=== PATIENT | female | born 1950 | race Caucasian/White ===

== ENCOUNTER 2017-02-02 07:49 | Inpatient (IN) | payer MEDICARE, MEDICAID ==
[~2017-02-02] VITALS: Ht 152.4 cm; Wt 68.8 kg
[2017-02-02 07:56] VITALS: Ht 152.4 cm; Wt 68.8 kg
[2017-02-02] MEDS ORDERED: ONDANSETRON 4 MG INJ IV STA (08:12)
[2017-02-02 08:34] LABS: ADD SCAN DIFF NO
[2017-02-02 09:03] LABS: ALBUMIN 5.1 g/dl (3.3-4.9); ALBUMIN/GLOBULIN RATIO 1.06; BILIRUBIN,INDIRECT 0.7 mg/dl (0-1.1); BILIRUBIN,TOTAL 0.7 mg/dl (0.2-1.3); CALCIUM 9.4 mg/dl (8.4-10.2); CREATININE 4.05 mg/dl (0.44-1.00); TOTAL PROTEIN 9.9 g/dl (6.1-8.1)
[2017-02-02 09:06] LABS: BASOPHILS % 0.2 % (0.0-2.0); EOSINOPHILS # 0.1 10^3/ul (0.0-0.5); EOSINOPHILS % 1.4 % (0.0-7.0); HEMATOCRIT 38.2 % (37.0-47.0); HEMOGLOBIN 13.1 g/dl (12.0-16.0); LYMPHOCYTES # 1.5 10^3/ul (0.8-2.9); MEAN CORPUSCULAR HEMOGLOBIN 35.2 pg (29.0-33.0); MEAN CORPUSCULAR HGB CONC 34.3 g/dl (32.0-37.0); MEAN CORPUSCULAR VOLUME 102.7 fl (82.0-101.0); MEAN PLATELET VOLUME 10.2 fl (7.4-10.4); MONOCYTE # 0.4 10^3/ul (0.3-0.9); MONOCYTES % 4.5 % (0.0-11.0); NEUTROPHIL # 7.1 10^3/ul (1.6-7.5); NEUTROPHILS % 77.4 % (39.0-77.0); PLATELET COUNT 124 10^3/UL (140-415); RED BLOOD COUNT 3.72 10^6/ul (4.20-5.40); RED CELL DISTRIBUTION WIDTH 13.5 % (11.5-14.5); WHITE BLOOD COUNT 9.2 10^3/ul (4.8-10.8)
--- NOTE | 2017-02-02 09:12 | RADRPT ---
PROCEDURE: CT Abdomen and Pelvis without contrast. CLINICAL INDICATION: Abdominal pain TECHNIQUE: CT of the abdomen and pelvis was performed on a multi-detector scanner without IV contr ast. Coronal and sagittal images were reformatted from the axial data set. One or more of the foll owing dose reduction techniques were used: automated exposure control, adjustment of the mA and/or kV according to patient size, use of iterative reconstruction technique. CTDI = 20.09 mGy. DLP = 10 69.71 mGy-cm. COMPARISON: None. FINDINGS: CT abdomen: The lung bases are clear. The heart size is normal, without pericardial effusion. Coronary arteria l calcifications are noted. Gallbladder is surgically absent. Liver, biliary tree, pancreas, splee n and adrenal glands are unremarkable. There is mild bilateral chronic renal atrophy. No urolithia sis or obstructive uropathy is identified. The stomach is grossly unremarkable. The aorta is of normal caliber. Aortic vascular calcifications are present. There is no retroperit matias lymphadenopathy. The mima hepatis region is clear. CT pelvis: No bowel obstruction, free intraperitoneal air or abscess is identified. Mild retained fecal materi al may indicate constipation. There is no diverticulosis, diverticulitis, colitis or appendicitis. Urinary bladder, uterus and adnexa are grossly unremarkable. No pelvic mass, free fluid or lymphad enopathy is identified. The surrounding osseous structures are remarkable for degenerative spondylosis of the spine. No ost eolytic or osteoblastic lesion is detected. IMPRESSION: 1. Coronary arterial and aortoiliac atherosclerotic calcifications are present. 2. Gallbladder is surgically absent. 3. There is mild chronic bilateral renal atrophy. No urolithiasis or obstructive uropathy is seen. 4. Mild retained fecal material may indicate constipation. 5. No bowel obstruction, mass, lymphadenopathy, or focal acute inflammatory process is identified. RPTAT: EE .Lonny Horne MD, Date Time Electronically viewed and signed by .Lonny Horne MD, on 02/02/2017 09:11 .R/
[2017-02-02 09:14] LABS: TROPONIN-I 0.02 ng/ml (0.00-0.12)
[2017-02-02 09:18] LABS: INR 1.03; PROTIME 13.5 Sec (12.2-14.2); PT RATIO 1.1
--- NOTE | 2017-02-02 10:44 | RADRPT ---
PROCEDURE: XR Chest. CLINICAL INDICATION: Possible sepsis TECHNIQUE: Single AP view of the chest were obtained COMPARISON: None FINDINGS: The heart is prominently enlarged. Surgical changes of sternotomy are seen with surgical clips in t he left neck as well. The pulmonary vasculature are unremarkable. The aorta demonstrates atheroscle rotic calcifications. There is no lung consolidation, pleural effusion or pneumothorax. Degenerati ve changes are seen within the thoracic spine. There is no acute osseous abnormality. IMPRESSION: Cardiomegaly and surgical changes of the sternum are present with otherwise no acute pulmonary proce ss. RPTAT: AA .Rocky Chambers MD, Date Time Electronically viewed and signed by .Rocky Chambers MD, on 02/02/2017 10:43 .J/
[2017-02-02] MEDS ORDERED: SODIUM CHLORIDE 0.9% 1L BAG IV* STA (11:09)
[2017-02-02] MEDS ORDERED: ACETAMINOPHEN 500 MG TAB PO STA (12:16)
[2017-02-02] MEDS ORDERED: ONDANSETRON 4 MG INJ IV PRN (14:30)
[2017-02-02] MEDS ORDERED: ACETAMINOPHEN 325 MG TAB PO PRN (14:30)
--- NOTE | 2017-02-02 14:51 | RADRPT ---
PROCEDURE: CT brain without contrast CLINICAL INDICATION: Altered level of consciousness TECHNIQUE: CT of the brain without contrast performed on a multidetector CT scanner, with multiplan ar reformats. One or more of the following dose reduction techniques were used: Automated exposure control, adjustment in mA and / or kV according to patient size, use of iterative reconstructive toma hnique. CTDIvol = 42 mGy; DLP = 720 mGy-cm. COMPARISON: None available FINDINGS: No acute intracranial hemorrhage is identified. No extra-axial fluid collection is seen. There is no mass effect. No midline shift is identified. The ventricles and sulci are mildly enlarged compatible with volume loss. There is a small chronic infarct in the right cerebellar hemisphere. There is a subtle tiny chronic cortical infarct in the left parietal lobe with adjacent gliosis. There are additional mild areas o f hypodensity in the periventricular - deep white matter which are nonspecific but suggestive of chr onic small vessel ischemic changes. Tenorio-white differentiation is otherwise preserved. Noted are p unctate calcifications in the left dentate nucleus. Atherosclerotic calcifications of the proximal intracranial arteries are noted. Osseous structures are unremarkable. Mastoid air cells and imaged paranasal sinuses grossly clear. IMPRESSION: 1. No evidence of acute intracranial pathology. 2. 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 3. Mild volume loss, with mild chronic small vessel ischemic changes. RPTAT: HH .Parviz Gill MD, MD Date Time Electronically viewed and signed by .Parviz Gill MD, MD on 02/02/2017 14:50 .O/
[2017-02-02 15:05] VITALS: TEMP 99.1
--- NOTE | 2017-02-02 15:27 | ERA ---
ER Documentation Chief Complaint Date/Time DATE: 02/02/17 TIME: 15:16 Chief Complaint vomitting after dialysis HPI 66-year-old female presenting with vomiting that started after dialysis today. Patient has a history of hypertension, CAD, ESRD on hemodialysis w/ anuria. She denies any associated chest pain, shortness of breath, vision disturbance, abdominal pain, neck pain, neck stiffness, headache, photophobia, constipation or diarrhea. She denies any sick contacts. Vomit is nonbloody and nonbilious. ROS All systems reviewed and are negative except as per history of present illness. Medications Home Meds Unable to Obtain Active Prescriptions or Reported Meds Allergies Allergies: Coded Allergies: No Known Allergy (Unverified , 02/02/17) PMhx/Soc History of Surgery: Yes (Cardiac surgery, cholecystectomy) Hx Cardiac Disorders: Yes (chf) Hx Miscellaneous Medical Probl: Yes (ESRD on hemodialysis) Hx Alcohol Use: No Hx Substance Use: No Hx Tobacco Use: No Smoking Status: Never smoker FmHx Family History: No coronary disease Physical Exam Vitals Vital Signs Date Time Temp Pulse Resp B/P Pulse Ox O2 Delivery O2 Flow Rate FiO2 02/02/17 15:05 99.1 75 20 125/73 95 Room Air 02/02/17 13:21 99.1 78 20 122/61 94 Room Air 02/02/17 11:20 100.3 93 20 135/59 97 Room Air 02/02/17 11:14 91 20 120/57 99 Room Air 02/02/17 08:05 Nasal Cannula 2 02/02/17 07:56 100.5 94 18 142/61 99 Physical Exam Const: [] Head: Atraumatic Eyes: Normal Conjunctiva ENT: Normal External Ears, Nose and Mouth. Neck: Full range of motion..~ No meningismus. Resp: Clear to auscultation bilaterally Cardio: Regular rate and rhythm, no murmurs Abd: Soft, non tender, non distended. Normal bowel sounds Skin: No petechiae or rashes Back: No midline or flank tenderness Ext: No cyanosis, or edema Neur: Awake and alert Psych: Normal Mood and Affect Result Diagram: 02/02/17 0810 02/02/17 0810 Results 24 hrs Laboratory Tests Test 02/02/17 08:10 02/02/17 11:44 White Blood Count 9.210^3/ul Red Blood Count 3.7210^6/ul Hemoglobin 13.1g/dl Hematocrit 38.2% Mean Corpuscular Volume 102.7fl Mean Corpuscular Hemoglobin 35.2pg Mean Corpuscular Hemoglobin Concent 34.3g/dl Red Cell Distribution Width 13.5% Platelet Count 37151^3/UL Mean Platelet Volume 10.2fl Neutrophils % 77.4% Lymphocytes % 16.0% Monocytes % 4.5% Eosinophils % 1.4% Basophils % 0.2% Nucleated Red Blood Cells % 0.0/100WBC Neutrophils # 7.110^3/ul Lymphocytes # 1.510^3/ul Monocytes # 0.410^3/ul Eosinophils # 0.110^3/ul Basophils # 0.010^3/ul Nucleated Red Blood Cells # 0.010^3/ul Prothrombin Time 13.5Sec Prothrombin Time Ratio 1.1 INR International Normalized Ratio 1.03 Activated Partial Thromboplast Time 30.0Sec Sodium Level 138mmol/L Potassium Level 4.0mmol/L Chloride Level 92mmol/L Carbon Dioxide Level 33mmol/L Anion Gap 17 Blood Urea Nitrogen 26mg/dl Creatinine 4.05mg/dl Glucose Level 80mg/dl Lactic Acid Level 2.1mmol/L 1.4mmol/L Calcium Level 9.4mg/dl Total Bilirubin 0.7mg/dl Direct Bilirubin 0.00mg/dl Indirect Bilirubin 0.7mg/dl Aspartate Amino Transf (AST/SGOT) 35IU/L Alanine Aminotransferase (ALT/SGPT) 28IU/L Alkaline Phosphatase 304IU/L Troponin I 0.020ng/ml Total Protein 9.9g/dl Albumin 5.1g/dl Globulin 4.80g/dl Albumin/Globulin Ratio 1.06 Current Medications Medications (Trade) Dose Ordered Sig/Vanesa Route PRN Reason Start Time Stop Time Status Last Admin Dose Admin Ondansetron HCl (Zofran Inj) 4 mg ONCE STAT IV 02/02/17 08:12 02/02/17 08:13 DC 02/02/17 08:25 Sodium Chloride (NS) 2,060 ml BOLUS OVER 2 HOURS STAT IV* 02/02/17 11:09 02/02/17 11:10 DC 02/02/17 11:29 Acetaminophen (Tylenol Tab) 1,000 mg ONCE STAT PO 02/02/17 12:16 02/02/17 12:17 DC 02/02/17 12:41 Ondansetron HCl (Zofran Inj) 4 mg BRIDGE ORDER PRN IV NAUSEA AND/OR VOMITING 02/02/17 14:30 02/03/17 14:29 Acetaminophen (Tylenol Tab) 650 mg ER BRIDGE PRN PO MILD PAIN/FEVER 02/02/17 14:30 02/03/17 14:29 Procedures/MDM EKG: Rate/Rhythm: Sinus tachycardia at 102 bpm QRS, ST, T-waves: Inferior lateral T-wave inversions, nonspecific Impression: No evidence of ischemia or arrhythmia Labs: CBC shows no leukocytosis, mild thrombocytopenia BMP shows evidence of chronic renal failure Troponin within normal limits Lactate elevated at 2.1 Repeat lactate 1.4 after IV fluids Imaging: Chest x-ray shows no acute abnormalities CT head shows no acute abnormalities MDM Patient is presenting with vomiting that started after dialysis. Her vitals were notable for mild tachycardia and low-grade fever. CT abdomen and pelvis was done to evaluate for an acute surgical abdomen, however this was normal. There is no evidence of pneumonia. I have a low suspicion for meningitis or encephalitis. Patient was treated with Zofran for her nausea and vomiting with some improvement. After some time in the ED, she started complaining of a gradual onset headache, [address] head was done to rule out intracranial hemorrhage secondary to retching and vomiting. This was negative. IV fluids were given with improvement of the lactate. Although patient has slightly improved, she does not feel comfortable going home at this time given her generalized weakness. She was able to tolerate fluids by mouth in the ED. the source of her infection is unknown but I suspect it is likely viral. However given the patient is a dialysis patient, she is at increased risk for bacteremia. Cefepime IV was ordered for broad-spectrum coverage until her source is discovered. Blood cultures are pending. Her symptoms have not stabilized and the patient is at risk of rapid decompensation given her risk factors and her age. The patient will be admitted for careful hydration, antibiotic therapy, and infectious source control. 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 30 ml/kg NS bolus Completed Initial Lactate: 2.1 Repeat Lactate 1.4 Critical Care: Time: 35 minutes Treatments/Evaluations: Emergent fluid management, while maintaining close respiratory support. Immediate broad spectrum antibiotic therapy. Simultaneous assessment for possible sources in order to direct therapy. Consideration for invasive and chemical support to prevent respiratory or cardiac collapse. Septic Shock Assessment (1 hour post 30 ml/kg fluid bolus): Hypotension (SBP < 90 or 40 mmHg drop, MAP < 65): No Lactic acid > 4.0 No Accepting Care Team: Current data and ongoing care discussed. Time: Time of admission Primary Provider: Prabhjot Consulting: none Outstanding Data: Cultures Departure Diagnosis: Primary Impression: Nausea and vomiting Qualified Code: R11.2 - Non-intractable vomiting with nausea, unspecified vomiting type Additional Impressions: Fever Qualified Code: R50.9 - Fever, unspecified fever cause End stage renal disease Sepsis Qualified Code: A41.9 - Sepsis, due to unspecified organism Condition: Fair Patient Instructions: Nausea and Vomiting-Adult EKJAYNA LUGO MD Feb 02, 2017 15:26
[2017-02-02] MEDS ORDERED: CEFEPIME 1GM/50 ML (PMX) 50 ML IVPB ONE (15:30)
[2017-02-02 16:14] VITALS: BP 119/56; PULSE 79; RESP 18
[2017-02-02] MEDS ORDERED: POLYETHYLENE GLYCOL 17 GM PACKET PO SCH (19:00)
[2017-02-02 19:09] LABS: ADD SCAN DIFF NO; BASOPHIL # 0.1 10^3/ul (0.0-0.1); BASOPHILS % 0.4 % (0.0-2.0); EOSINOPHILS % 0.3 % (0.0-7.0); HEMATOCRIT 34.7 % (37.0-47.0); HEMOGLOBIN 11.6 g/dl (12.0-16.0); LYMPHOCYTES # 1.3 10^3/ul (0.8-2.9); LYMPHOCYTES % 9.6 % (15.0-51.0); MEAN CORPUSCULAR HGB CONC 33.4 g/dl (32.0-37.0); MEAN CORPUSCULAR VOLUME 104.8 fl (82.0-101.0); MONOCYTE # 0.7 10^3/ul (0.3-0.9); NEUTROPHIL # 10.9 10^3/ul (1.6-7.5); NEUTROPHILS % 83.8 % (39.0-77.0); PLATELET COUNT 123 10^3/UL (140-415); RED BLOOD COUNT 3.31 10^6/ul (4.20-5.40); RED CELL DISTRIBUTION WIDTH 13.8 % (11.5-14.5)
[2017-02-02 19:28] LABS: CALCIUM 8.6 mg/dl (8.4-10.2); CREATININE 5.22 mg/dl (0.44-1.00); MAGNESIUM 2.1 mg/dl (1.7-2.5); PHOSPHORUS 3.7 mg/dl (2.5-4.9); POTASSIUM 5.4 mmol/L (3.5-5.1)
[2017-02-02 19:58] LABS: THYROID STIMULATING HORMONE 1.81 MIU/L (0.465-4.680)
[2017-02-02 20:00] VITALS: BP 137/61; RESP 20
[2017-02-02] MEDS ORDERED: HEPARIN 5,000 UNIT/0.5 ML VIAL ONE (20:06)
[2017-02-02] MEDS ORDERED: METOPROLOL 50 MG TAB ONE (20:07)
--- NOTE | 2017-02-02 20:42 | HP ---
Date/Time of Note Date/Time of Note DATE: 02/02/17 TIME: 16:11 Assessment/Plan VTE Prophylaxis VTE Prophylaxis Intervention: SCD's Assessment/Plan Assessment/Plan 66 yo F with ESRD on HD, HTN, HL, hypothyroid presents with several hours of vomiting and lightheadedness following dialysis. Given slightly elevated body temperature, concern for infectious process especially given acuity of onset. Pt does not meet SIRS criteria based on presentation vitals and labs. Certainly occult bacteremia must be considered in patient with frequent access of her vascular system -blood cultures drawn by ER -sp abx x 1. given clinical stability, defer additional abx pending further culture data -supportive care #ESRD renal cs for HD needs cont home phos mediators #HTN: cont home BP meds #HL: cont statin #PVD: cont home asa #hypothyroid: synthroid renal diet SQH/SCDs anticipate discharge in 1-2 days pending test results HPI/ROS Admit Date/Time Admit Date/Time Feb 02, 2017 at 14:22 Hx of Present Illness 66 yo F with pmhx ESRD on HD, HTN, HL, hypothyroid presents with several hours of nausea and lightheadedness. Pt was in her usual state of health until her dialysis session today. During the session towards the end pt began to feel unwell-->nauseated, diaphoretic. She vomited several times and was brought to the hospital for furher management. Pt denies any chest pain or SOB. No coughing. Pt's home meds list as per [facility] asa 81 benazepril 20 BID clonidine 0.3 q HS docusate 100 BID levothyroxine 0.25 mg daily metoprolol 50 BID nifedipine XL 60 daily phoslo 667mg==> 3 tabs TID AC renagel 2 tab TID AC simvastain 20 daily ROS 10p ROS neg except as per HPI PMH/Family/Social Past Medical History as per HPI Soc Hx: lives in the community Social History Smoking Status: Never smoker Exam/Review of Systems Vital Signs Vitals Vital Signs Date Time Temp Pulse Resp B/P Pulse Ox O2 Delivery O2 Flow Rate FiO2 02/02/17 15:05 99.1 75 20 125/73 95 Room Air 02/02/17 08:05 2 Exam Exam nad, laying in bed, feels diffusely warm to touch MMM EOMI +palpable thrill over HD access point in LUE, no drainage or ttp rrr lungs clear abd soft no le edema, multiple surgically absent toes responds to questions appropriately in Pashto Labs Result Diagram: 02/02/17 0810 02/02/17 0810 Medications Medications Current Medications Cefepime HCl (Maxipime 1gm/50 ml (Pmx)) 50 ml @ 100 mls/hr ONCE ONCE IVPB ; Start 02/02/17 at 15:30; Stop 02/02/17 at 15:59 Procedures Procedures labs reviewed. WBCs nl, lactic acid minimally elevated to 2.0 on arrival. EKG and CXR results noted PRISCILLA DENTON MD Feb 02, 2017 16:13
[2017-02-02] MEDS ORDERED: METOPROLOL 50 MG TAB PO SCH (21:00)
[2017-02-02] MEDS: ATORVASTATIN 10 MG TAB PO SCH (21:00)
[2017-02-02] MEDS ORDERED: HEPARIN 5,000 UNIT/0.5 ML VIAL SC SCH (22:00)
[2017-02-03] MEDS ORDERED: ACETAMINOPHEN 325 MG TAB PO PRN ×2 (05:30→21:00)
[2017-02-03] MEDS: LEVOTHYROXINE 25 MCG TAB PO SCH (05:34)
[2017-02-03] MEDS: HEPARIN 5,000 UNIT/0.5 ML VIAL SC SCH ×3 (05:36→20:54)
[2017-02-03 05:42] LABS: ADD SCAN DIFF NO
[2017-02-03 05:55] LABS: BASOPHILS % 0.4 % (0.0-2.0); EOSINOPHILS # 0.1 10^3/ul (0.0-0.5); EOSINOPHILS % 1.2 % (0.0-7.0); HEMATOCRIT 34.2 % (37.0-47.0); HEMOGLOBIN 11.6 g/dl (12.0-16.0); LYMPHOCYTES # 1.8 10^3/ul (0.8-2.9); MEAN CORPUSCULAR HEMOGLOBIN 35.6 pg (29.0-33.0); MEAN CORPUSCULAR HGB CONC 33.9 g/dl (32.0-37.0); MEAN CORPUSCULAR VOLUME 104.9 fl (82.0-101.0); MEAN PLATELET VOLUME 10.2 fl (7.4-10.4); MONOCYTE # 0.6 10^3/ul (0.3-0.9); MONOCYTES % 5.5 % (0.0-11.0); NEUTROPHIL # 7.9 10^3/ul (1.6-7.5); NEUTROPHILS % 75.4 % (39.0-77.0); PLATELET COUNT 117 10^3/UL (140-415); RED BLOOD COUNT 3.26 10^6/ul (4.20-5.40); RED CELL DISTRIBUTION WIDTH 13.7 % (11.5-14.5); WHITE BLOOD COUNT 10.4 10^3/ul (4.8-10.8)
[2017-02-03 06:24] LABS: CALCIUM 8.5 mg/dl (8.4-10.2); CREATININE 6.43 mg/dl (0.44-1.00); POTASSIUM 4.8 mmol/L (3.5-5.1)
[2017-02-03] MEDS: CALCIUM ACETATE 667 MG CAP PO SCH ×3 (06:39→17:23)
[2017-02-03] MEDS: SEVELAMER 400 MG TAB PO SCH ×3 (06:39→17:23)
[2017-02-03 08:04] VITALS: BP 155/70; RESP 20
[2017-02-03] MEDS: BENAZEPRIL 20 MG TAB PO SCH (08:38)
[2017-02-03] MEDS: ASPIRIN 81 MG TAB PO SCH (08:38)
[2017-02-03] MEDS: METOPROLOL 50 MG TAB PO SCH ×2 (08:39→20:52)
[2017-02-03] MEDS: NIFEdipine (XL) 60 MG TAB PO SCH (08:39)
[2017-02-03] MEDS ORDERED: ASPIRIN 81 MG TAB PO SCH (09:00)
[2017-02-03] MEDS ORDERED: BENAZEPRIL 20 MG TAB PO SCH (09:00)
[2017-02-03] MEDS ORDERED: POLYETHYLENE GLYCOL 17 GM PACKET PO SCH (09:00)
[2017-02-03] MEDS ORDERED: BISACODYL (EC) 5 MG TAB PO PRN (13:30)
[2017-02-03] MEDS ORDERED: BISACODYL 10 MG SUPP PR ONE (13:30)
--- NOTE | 2017-02-03 14:51 | PN ---
Date/Time of Note Date/Time of Note DATE: 02/03/17 TIME: 14:51 Assessment/Plan VTE Prophylaxis VTE Prophylaxis Intervention: SCD's Lines/Catheters IV [facility] Saline Lock Urinary Cath still in place: No Assessment/Plan Assessment/Plan 66 yo F with ESRD on HD, HTN, HL, hypothyroid presents with several hours of vomiting and lightheadedness following dialysis. Given slightly elevated body temperature, concern for infectious process especially given acuity of onset. -blood cultures drawn by ER, ngtd -sp abx x 1. given clinical stability, defer additional abx pending further culture data #ESRD renal cs for HD needs-->Dr Villegas cont home phos mediators #HTN: cont home BP meds #HL: cont statin #PVD: cont home asa #hypothyroid: synthroid renal diet SQH/SCDs home once afebrile x 24 hours. will stop all apap containing products to mask occult fever Subjective 24 Hr Interval Summary Free Text/Dictation Pt feels totally back to baseline. Temperate still a little elevated overnight Exam/Review of Systems Vital Signs Vitals Vital Signs Date Time Temp Pulse Resp B/P Pulse Ox O2 Delivery O2 Flow Rate FiO2 02/03/17 08:04 99.0 77 20 155/70 98 02/02/17 16:14 Room Air 02/02/17 08:05 2 Intake and Output 02/02/17 02/02/17 02/03/17 15:00 23:00 07:00 Intake Total 120 ml Balance 120 ml Exam nad, pleasant no mrg lungs clear abd soft, ntnd no rashes WBCs improved Blood cultures ngtd Results Result Diagram: 02/03/17 0430 02/03/17 0430 Results 24 hrs Laboratory Tests Test 02/02/17 18:50 02/03/17 04:30 White Blood Count 13.0 #H 10.4 Red Blood Count 3.31 L 3.26 L Hemoglobin 11.6 L 11.6 L Hematocrit 34.7 L 34.2 L Mean Corpuscular Volume 104.8 H 104.9 H Mean Corpuscular Hemoglobin 35.0 H 35.6 H Mean Corpuscular Hemoglobin Concent 33.4 33.9 Red Cell Distribution Width 13.8 13.7 Platelet Count 123 L 117 L Mean Platelet Volume 10.0 10.2 Neutrophils % 83.8 H 75.4 Lymphocytes % 9.6 L 17.0 Monocytes % 5.0 5.5 Eosinophils % 0.3 1.2 Basophils % 0.4 0.4 Nucleated Red Blood Cells % 0.0 0.0 Neutrophils # 10.9 H 7.9 H Lymphocytes # 1.3 1.8 Monocytes # 0.7 0.6 Eosinophils # 0.0 0.1 Basophils # 0.1 0.0 Nucleated Red Blood Cells # 0.0 0.0 Sodium Level 139 135 Potassium Level 5.4 H 4.8 Chloride Level 94 L 92 L Carbon Dioxide Level 31 30 Anion Gap 19 H 18 H Blood Urea Nitrogen 35 H 45 H Creatinine 5.22 H 6.43 H Glucose Level 181 # 79 # Hemoglobin A1c 6.2 H Calcium Level 8.6 8.5 Phosphorus Level 3.7 Magnesium Level 2.1 Thyroid Stimulating Hormone (TSH) 1.810 Medications Medications Current Medications Nifedipine (Procardia Xl) 60 mg DAILY PO Last administered on 02/03/17 08:39; Admin Dose 60 MG; Start 02/03/17 at 09:00 Atorvastatin Calcium (Lipitor) 10 mg DAILY@21 PO Last administered on 21:00; Admin Dose 10 MG; Start 02/02/17 at 21:00 Ondansetron HCl (Zofran Tab) 4 mg Q6H PRN PO NAUSEA AND/OR VOMITING; Start at 19:00 Levothyroxine Sodium (Synthroid) 25 mcg DAILY@06 PO Last administered on 05:34; Admin Dose 25 MCG; Start 02/03/17 at 06:00 Acetaminophen (Tylenol Tab) 650 mg Q6H PRN PO PAIN AND OR ELEVATED TEMP Last administered on 02/03/17 05:34; Admin Dose 650 MG; Start 02/03/17 at 05:30 Heparin Sodium (Porcine) (Heparin (5000 Units/0.5 ml)) 5,000 unit Q8 SC Last administered on 02/03/17 14:42; Admin Dose 5,000 UNIT; Start 02/03/17 at 06:00 Aspirin (Aspirin) 81 mg DAILY PO Last administered on 02/03/17 08:38; Admin Dose 81 MG; Start 02/03/17 at 09:00 Benazepril HCl (Lotensin) 20 mg DAILY PO Last administered on 02/03/17 08:38; Admin Dose 20 MG; Start 02/03/17 at 09:00 Metoprolol Tartrate (Lopressor) 50 mg BID PO Last administered on 02/03/17 08: 39; Admin Dose 50 MG; Start 02/03/17 at 09:00 Bisacodyl (Dulcolax) 10 mg DAILY PRN PO CONSTIPATION; Start 02/03/17 at 13:30 PRISCILLA DENTON MD Feb 03, 2017 14:51
[2017-02-03 20:33] VITALS: BP 142/64; RESP 18
[2017-02-03] MEDS: ATORVASTATIN 10 MG TAB PO SCH (20:51)
[2017-02-03] MEDS ORDERED: ATORVASTATIN 10 MG TAB PO SCH (21:00)
[2017-02-04] MEDS ORDERED: hydrALAzine 20 MG INJ IV ONE (04:30)
[2017-02-04] MEDS: LEVOTHYROXINE 25 MCG TAB PO SCH (05:47)
[2017-02-04] MEDS: HEPARIN 5,000 UNIT/0.5 ML VIAL SC SCH ×3 (05:49→22:17)
[2017-02-04 05:50] LABS: ADD SCAN DIFF NO
[2017-02-04] MEDS: SEVELAMER 400 MG TAB PO SCH ×2 (06:19→17:39)
[2017-02-04] MEDS: ONDANSETRON 4 MG TAB PO PRN ×2 (06:19→22:49)
[2017-02-04 06:20] LABS: CALCIUM 8.7 mg/dl (8.4-10.2); CREATININE 8.46 mg/dl (0.44-1.00)
[2017-02-04 06:47] LABS: BASOPHILS % 0.4 % (0.0-2.0); EOSINOPHILS # 0.3 10^3/ul (0.0-0.5); EOSINOPHILS % 4.1 % (0.0-7.0); HEMATOCRIT 32.4 % (37.0-47.0); HEMOGLOBIN 11.1 g/dl (12.0-16.0); LYMPHOCYTES # 2.3 10^3/ul (0.8-2.9); LYMPHOCYTES % 28.5 % (15.0-51.0); MEAN CORPUSCULAR HEMOGLOBIN 35.5 pg (29.0-33.0); MEAN CORPUSCULAR HGB CONC 34.3 g/dl (32.0-37.0); MEAN CORPUSCULAR VOLUME 103.5 fl (82.0-101.0); MEAN PLATELET VOLUME 10.8 fl (7.4-10.4); MONOCYTE # 0.9 10^3/ul (0.3-0.9); MONOCYTES % 10.7 % (0.0-11.0); NEUTROPHIL # 4.5 10^3/ul (1.6-7.5); NEUTROPHILS % 55.9 % (39.0-77.0); PLATELET COUNT 125 10^3/UL (140-415); RED BLOOD COUNT 3.13 10^6/ul (4.20-5.40); RED CELL DISTRIBUTION WIDTH 13.5 % (11.5-14.5)
[2017-02-04 07:53] VITALS: BP 174/79; RESP 18
[2017-02-04] MEDS: ASPIRIN 81 MG TAB PO SCH (08:44)
[2017-02-04] MEDS: CALCIUM ACETATE 667 MG CAP PO SCH ×3 (08:44→17:39)
[2017-02-04] MEDS: BENAZEPRIL 20 MG TAB PO SCH (08:45)
[2017-02-04] MEDS: METOPROLOL 50 MG TAB PO SCH ×2 (08:47→22:18)
[2017-02-04] MEDS: NIFEdipine (XL) 60 MG TAB PO SCH (08:47)
[2017-02-04 12:55] VITALS: BP 115/56; PULSE 71
[2017-02-04] MEDS ORDERED: SODIUM CHLORIDE 1 GM TAB PO ONE (18:30)
[2017-02-04 20:35] VITALS: BP 138/64; RESP 18
--- NOTE | 2017-02-04 21:52 | PN ---
Date/Time of Note Date/Time of Note DATE: 02/04/17 TIME: 21:52 Assessment/Plan Lines/Catheters IV Catheter Type (from [facility]): Saline Lock Urinary Cath still in place: No Assessment/Plan Assessment/Plan 66 yo F with ESRD on HD, HTN, HL, hypothyroid presents with several hours of vomiting and lightheadedness following dialysis. Given slightly elevated body temperature, concern for infectious process especially given acuity of onset. -blood cultures drawn by ER, ngtd -sp abx x 1. given clinical stability, defer additional abx pending further culture data #ESRD renal cs for HD needs-->Dr Villegas cont home phos mediators #HTN: cont home BP meds #HL: cont statin #PVD: cont home asa #hypothyroid: synthroid renal diet SQH/SCDs Exam/Review of Systems Vital Signs Vitals Vital Signs Date Time Temp Pulse Resp B/P Pulse Ox O2 Delivery O2 Flow Rate FiO2 02/04/17 20:35 98.1 73 18 138/64 99 02/02/17 16:14 Room Air 02/02/17 08:05 2 Intake and Output 02/03/17 02/03/17 02/04/17 15:00 23:00 07:00 Intake Total 1140 ml 500 ml Balance 1140 ml 500 ml Exam Constitutional: alert, oriented, well developed Head: atraumatic, normocephalic Eyes: EOMI, PERRL Neck: non-tender, supple Respiratory: clear to auscultation, normal air movement Cardiovascular: nl pulses, regular rate and rhythm Gastrointestinal: non-tender, soft Results Result Diagram: 02/04/17 0455 02/04/17 0455 Results 24 hrs Laboratory Tests Test 02/04/17 04:55 White Blood Count 8.0 # Red Blood Count 3.13 L Hemoglobin 11.1 L Hematocrit 32.4 L Mean Corpuscular Volume 103.5 H Mean Corpuscular Hemoglobin 35.5 H Mean Corpuscular Hemoglobin Concent 34.3 Red Cell Distribution Width 13.5 Platelet Count 125 L Mean Platelet Volume 10.8 H Neutrophils % 55.9 Lymphocytes % 28.5 Monocytes % 10.7 Eosinophils % 4.1 Basophils % 0.4 Nucleated Red Blood Cells % 0.0 Neutrophils # 4.5 Lymphocytes # 2.3 Monocytes # 0.9 Eosinophils # 0.3 Basophils # 0.0 Nucleated Red Blood Cells # 0.0 Sodium Level 134 L Potassium Level 5.0 Chloride Level 91 L Carbon Dioxide Level 27 Anion Gap 21 H Blood Urea Nitrogen 65 H Creatinine 8.46 #H Glucose Level 113 Calcium Level 8.7 Medications Medications Current Medications Nifedipine (Procardia Xl) 60 mg DAILY PO Last administered on 02/04/17 08:47; Admin Dose 60 MG; Start 02/03/17 at 09:00 Atorvastatin Calcium (Lipitor) 10 mg DAILY@21 PO Last administered on 20:51; Admin Dose 10 MG; Start 02/02/17 at 21:00 Ondansetron HCl (Zofran Tab) 4 mg Q6H PRN PO NAUSEA AND/OR VOMITING Last administered on 02/04/17 06:19; Admin Dose 4 MG; Start 02/02/17 at 19:00 Levothyroxine Sodium (Synthroid) 25 mcg DAILY@06 PO Last administered on 05:47; Admin Dose 25 MCG; Start 02/03/17 at 06:00 Heparin Sodium (Porcine) (Heparin (5000 Units/0.5 ml)) 5,000 unit Q8 SC Last administered on 02/04/17 15:09; Admin Dose 5,000 UNIT; Start 02/03/17 at 06:00 Aspirin (Aspirin) 81 mg DAILY PO Last administered on 02/04/17 08:44; Admin Dose 81 MG; Start 02/03/17 at 09:00 Benazepril HCl (Lotensin) 20 mg DAILY PO Last administered on 02/04/17 08:45; Admin Dose 20 MG; Start 02/03/17 at 09:00 Metoprolol Tartrate (Lopressor) 50 mg BID PO Last administered on 02/04/17 08: 47; Admin Dose 50 MG; Start 02/03/17 at 09:00 Bisacodyl (Dulcolax) 10 mg DAILY PRN PO CONSTIPATION; Start 02/03/17 at 13:30 Acetaminophen (Tylenol Tab) 650 mg Q6H PRN PO PAIN AND OR ELEVATED TEMP Last administered on 02/04/17 03:30; Admin Dose 650 MG; Start 02/03/17 at 21:00 Clonidine (Catapres) 0.1 mg Q8 GTB ; Start 02/04/17 at 22:00 ISAC FAIRBANKS MD Feb 04, 2017 21:52
[2017-02-04] MEDS: ATORVASTATIN 10 MG TAB PO SCH (22:19)
--- NOTE | 2017-02-04 23:03 | CONS ---
DATE OF ADMISSION: 02/03/2017 DATE OF CONSULTATION: 02/04/[address] Leos: Thank you for asking me to participate in the care of this 65-year-old, , para 3, 3 female with a history of diabetes, hypertension, end-stage kidney disease, for which she has been on hemodialysis for 13 years. The patient apparently has been followed by another physician in the [facility] and was brought to the emergency room with the chief complaint of vomiting and lightheadedness. The patient was found to be febrile and had a normal white count at the time of admission, and nephrology consultation is requested for the management of renal failure and dialysis. MEDICATIONS: Please note, the patient has been on multiple medications includin. Nifedipine. 2. Bisacodyl. 3. Aspirin. 4. Benazepril. 5. Metoprolol. 6. Calcium acetate. 7. Levothyroxine. 8. Atorvastatin. 9. Some other p.r.n. medications. The patient has been carefully evaluated in the hospital and workup also revealed an MCV 103, hematocrit was 38%, which has now dropped to 32%. Her chemistry has shown consistently elevated BUN and creatinine, and electrolytes have dropped, serum sodium to 139 to 134, potassium is barely 5. Calcium and phosphorus are within normal range. The patient has already had several other studies including a chest x-ray which shows only cardiomegaly and CT of the abdomen shows gallbladder surgically absent, retained fecal material. No lymphadenopathy or masses noted. The rest of the system review results insignificant from head, ear, nose, throat point of view. No chest pain, shortness of breath, abdominal pain, nausea, vomiting or diarrhea. 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 No history of acute gout, joint pain, seizures, syncope, or other metabolic problem. PHYSICAL EXAMINATION: GENERAL APPEARANCE: The patient has been reasonably stable. VITAL SIGNS: Blood pressure has been decent in the 130 to 150 systolic range, and the heart rate is in 70s, maximum temperature is 100.4, respiration not labored at 18. HEAD, EARS, THROAT: Unremarkable. EYES: Symmetrical pupils. Conjunctivae pale. Sclerae are anicteric. NOSE: Normal mucosa. THROAT: Tongue is pale. No pharyngeal congestion. NECK: Supple. No jugular venous distention, lymph node or thyroid present. Trachea is midline. CHEST: Symmetrical. BREASTS: Not examined. LUNGS: Clear. HEART: Regular rhythm no murmurs. ABDOMEN: Flat, soft, no masses. GENITALIA: Not examined. EXTREMITIES: Left arm AV fistula is functioning with bruit present. SKIN: Unremarkable. IMPRESSION: 1. History of diabetes, hypertension, end-stage kidney disease on dialysis. 2. Acute dizziness or weakness may be related to excessive ultrafiltration with dialysis. 3. No evidence of sepsis. PLAN: This patient has already been known to have ESRD for which she has been dialysis for 13 yr. The present admission may have been precipitated by aggressive UF on dialysis. presently she has been started on multiple medications and I suspect that we may have to modify one of the medications since the blood pressure is still on the high side. I would add clonidine to the regimen and hope that the blood pressure can be stabilized. Please make sure to discharge the patient on this medication. HD will be continued per schedule. I will follow the patient's clinical course closely along with you. Allow me to thank you once again. Dictated By: JOSE SHEFFIELD/HALLEY Conf#: [id number] DID#: [id number] AMADOU
[2017-02-05] VITALS (9 sets, daily range): BP systolic 128–174; BP diastolic 65–89; PULSE 70–79; RESP 18
[2017-02-05] MEDS: LEVOTHYROXINE 25 MCG TAB PO SCH (06:14)
[2017-02-05] MEDS: HEPARIN 5,000 UNIT/0.5 ML VIAL SC SCH ×2 (06:16→14:37)
[2017-02-05] MEDS: CALCIUM ACETATE 667 MG CAP PO SCH ×2 (08:35→11:51)
[2017-02-05] MEDS: SEVELAMER 400 MG TAB PO SCH (08:35)
[2017-02-05] MEDS: ASPIRIN 81 MG TAB PO SCH (08:36)
[2017-02-05] MEDS: METOPROLOL 50 MG TAB PO SCH ×2 (08:37→11:53)
[2017-02-05] MEDS: NIFEdipine (XL) 60 MG TAB PO SCH ×2 (08:37→11:51)
[2017-02-05] MEDS: BENAZEPRIL 20 MG TAB PO SCH ×2 (08:38→11:52)
--- NOTE | 2017-02-05 12:22 | CONS ---
Date/Time of Note Date/Time of Note DATE: 02/05/17 TIME: 12:22 Assessment/Plan Assessment/Plan Additional Assessment/Plan 66 yo Female with 1) ESRD 2) HTN, Chronic 3) Anemia, Chronic, CKD 4) Mineral Bone disease, CKD 5) Dizziness Resolved. 6) Fever Leukocytosis, Resolved S/p HD, Tolerated UF Cont 3x week HD Next HD F/u Cultures, So far no growth cont current Rx and plan Renal dose all Rx to ESRD Consultation Date/Type/Reason Admit Date/Time Feb 03, 2017 at 14:49 Initial Consult Date Type of Consultation: Renal Reason for Consultation ESRD 24 HR Interval Summary Free Text/Dictation S/p HD, -3L, no complication, pt feels better, No dizziness Constitutional: No requiring O2 Exam/Review of Systems Vital Signs Vitals Vital Signs Date Time Temp Pulse Resp B/P Pulse Ox O2 Delivery O2 Flow Rate FiO2 02/05/17 09:50 79 02/05/17 08:32 98.2 18 174/76 98 02/02/17 16:14 Room Air 02/02/17 08:05 2 Intake and Output 02/04/17 02/04/17 02/05/17 15:00 23:00 07:00 Intake Total 740 ml 560 ml Balance 740 ml 560 ml Exam Constitutional: alert, oriented, No distress Eyes: EOMI ENMT: mucosa pink and moist Neck: No jvd Respiratory: clear to auscultation Cardiovascular: regular rate and rhythm, No edema Gastrointestinal: non-tender, soft Extremities: other (LUE AVF Good thrill), No edema Neurological: 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, No lethargic Skin: No diaphoresis Results Result Diagram: 02/04/17 0455 02/04/17 0455 Medications Medications Current Medications Nifedipine (Procardia Xl) 60 mg DAILY PO Last administered on 02/05/17 11:51; Admin Dose 60 MG; Start 02/03/17 at 09:00 Atorvastatin Calcium (Lipitor) 10 mg DAILY@21 PO Last administered on 22:19; Admin Dose 10 MG; Start 02/02/17 at 21:00 Ondansetron HCl (Zofran Tab) 4 mg Q6H PRN PO NAUSEA AND/OR VOMITING Last administered on 02/04/17 22:49; Admin Dose 4 MG; Start 02/02/17 at 19:00 Levothyroxine Sodium (Synthroid) 25 mcg DAILY@06 PO Last administered on 06:14; Admin Dose 25 MCG; Start 02/03/17 at 06:00 Heparin Sodium (Porcine) (Heparin (5000 Units/0.5 ml)) 5,000 unit Q8 SC Last administered on 02/05/17 06:16; Admin Dose 5,000 UNIT; Start 02/03/17 at 06:00 Aspirin (Aspirin) 81 mg DAILY PO Last administered on 02/05/17 08:36; Admin Dose 81 MG; Start 02/03/17 at 09:00 Benazepril HCl (Lotensin) 20 mg DAILY PO Last administered on 02/05/17 11:52; Admin Dose 20 MG; Start 02/03/17 at 09:00 Metoprolol Tartrate (Lopressor) 50 mg BID PO Last administered on 02/05/17 11: 53; Admin Dose 50 MG; Start 02/03/17 at 09:00 Bisacodyl (Dulcolax) 10 mg DAILY PRN PO CONSTIPATION; Start 02/03/17 at 13:30 Acetaminophen (Tylenol Tab) 650 mg Q6H PRN PO PAIN AND OR ELEVATED TEMP Last administered on 02/04/17 03:30; Admin Dose 650 MG; Start 02/03/17 at 21:00 Clonidine (Catapres) 0.1 mg Q8 GTB Last administered on 02/04/17 22:19; Admin Dose 0.1 MG; Start 02/04/17 at 22:00 SADAF ELLIOTT MD Feb 05, 2017 12:22
--- NOTE | 2017-02-05 15:51 | PDOCDIS ---
Discharge Instructions CONDITION Patient Condition: Stable HOME CARE INSTRUCTIONS: Special Diet: renal ACTIVITY: Activity Restrictions: Slowly Increase Activity FOLLOW UP/APPOINTMENTS Appointments follow-up with primary care Doctor and Nephrology and dialysis center OTHER ORDERS: Other Orders: Call 911 and go to the nearest ER if you have severe pain, fever, chills, bleeding ISAC FAIRBANKS MD Feb 05, 2017 15:51
[2017-02-05] MEDS ORDERED: NIFE60TA7 PO (15:54)
[2017-02-05] MEDS ORDERED: SVL400T PO (15:54)
[2017-02-05] MEDS ORDERED: ONDA4TAB95 PO (15:54)
[2017-02-05] MEDS ORDERED: BENA20TA48 PO (15:54)
[2017-02-05] MEDS ORDERED: CLON0.1T14 GTB (15:54)
[2017-02-05] MEDS ORDERED: LEVO25TA53 PO (15:54)
[2017-02-05] MEDS ORDERED: METO-429 PO (15:54)
[2017-02-05] MEDS ORDERED: ASPI81TA3 PO (15:54)
[2017-02-05] MEDS ORDERED: ATOR10TA65 PO (15:54)
[2017-02-05] MEDS ORDERED: CALC667C PO (15:54)
== END 2017-02-05 17:10 | disposition home or self-care (01) | DRG 391 ==
LOC: E/R 07:49 → PP2 14:22 → OBSVTOIN 02-03 14:49
PROVIDERS: ADMIT Family Medicine; ATTEND Family Medicine
PROC: 5A1D00Z (ICD-10-PCS; principal; 2017-02-05)
DX: R11.2 Nausea with vomiting, unspecified (principal); N18.6 End stage renal disease; I12.0 Hypertensive chronic kidney disease with stage 5 chronic kidney disease or end stage renal disease; E11.22 Type 2 diabetes mellitus with diabetic chronic kidney disease; E78.5 Hyperlipidemia, unspecified; E03.9 Hypothyroidism, unspecified; D63.1 Anemia in chronic kidney disease; R42 Dizziness and giddiness; Z99.2 Dependence on renal dialysis; Z79.82 Long term (current) use of aspirin
CPT/HCPCS: 36415; 70450; 71010; 74176; 80048; 80053; 83036; 83605; 83735; 84100; 84443; 84484; 85025; 85610; 85730; 87040; 90935; 93005; 96374; G0378; J0360; J0692; J1644; J2405; J7030